=== PATIENT | female | born 1930 | race Caucasian/White ===

== ENCOUNTER → 2017-10-11 | Outpatient (CLI) | payer MEDICARE, OTHER ==
[~2017-10-11] MED LIST: CARVEDILOL12.5 MG PO; CITRACAL + D M1 EACH PO; ESTROGEN PO; FENOFIBRATE134 MG PO; FUROSEMIDE40 MG PO; HYDROCODON-ACE1 EAC9 PO; IRBESARTAN PO; IRBESARTAN150 MG PO; LEVOTHYROXINE75 MCG PO; LOVAZA1 GM PO; MEROPENEM1 GM IV; MULTIVITAMINS1 EAC7 PO; NEXIUM40 MG PO; POTASSIUM CHLO10 ME1 PO; POTASSIUM CHLO20 ME1 PO; PREMARIN0.3 MG PO; PROTONIX40 MG PO; SIMVASTATIN20 MG PO; SUPER B COMPLE150 MG PO; TEMAZEPAM30 MG PO; TRIAMTERENE-HC1 EAC2 PO; TRIAMTERENE-HCTZ1 EA PO; TRILIPIX135 MG PO; VITAMIN C500 MG PO; VITAMIN D31000 UNIT PO; ZOCOR20 MG PO; ZOFRAN4 MG/5 ML IVP
--- NOTE | 2017-10-11 14:17 | Diagnostic Imaging Report ---
PROCEDURE:US RETROPERITONEAL ( KIDNEY ). COMPARISON:Renal ultrasound 10/24/2015. KUB 06/15/2016. INDICATIONS:Calculus, Hydronephrosis TECHNIQUE: Carvalho-scale and color sonographic images of the bilateral kidneys and bladder where obtained in transverse and longitudinal planes. FINDINGS: RIGHT KIDNEY: 10.6 x 5.2 x 4.7 cm, cortex 1.5 cm Cysts: None Solid masses: None Stones: None Hydronephrosis: None Echogenicity: Increased LEFT KIDNEY: 8.8 x 4.3 x 4.3 cm, cortex 1.2 cm Cysts: None Solid masses: None Stones: None Hydronephrosis: None Echogenicity: Increased Bladder: Unremarkable. Both ureteral jets visualized. CONCLUSION: 1. No sonographically apparent renal calculi. No hydronephrosis. 2. Increased renal echogenicity suggestive of medical renal disease. Dictated by: Herman Roque M.D. on 10/11/2017 at 14:17 Electronically approved by: Herman Roque M.D. on 10/11/2017 at 14:17
== END ==
LOC: US 12:09
PROVIDERS: ATTEND Urology
DX: N13.30 Unspecified hydronephrosis (principal)
CPT/HCPCS: 76770